=== PATIENT | female | born 1960 | race Caucasian/White ===

== ENCOUNTER → 2016-10-06 | Outpatient (CLI) | payer OTHER | LOC: FIMAGING 10:42 | PROVIDERS: ATTEND Family Medicine | DX: Z12.31 Encounter for screening mammogram for malignant neoplasm of breast (principal) | CPT/HCPCS: G0202 ==

== ENCOUNTER 2016-12-17 10:43 | Emergency (ER) | payer OTHER ==
[2016-12-17 10:57] VITALS: BP 150/95; PULSE 68; RESP 20; TEMP 98.2; O2SAT 100
--- NOTE | 2016-12-17 11:04 | EDPHY ---
H & P Stated Complaint: pt noted lump in r groin wednesday/sent by pcp to r/o DVT Time Seen by Provider: 12/17/16 11:04 - Personal History LMP (Females 10-55): Post Menopausal Current Tetanus/Diphtheria Vaccine: Unsure - Medical/Surgical History Hx Asthma: No Hx Chronic Respiratory Disease: No Hx Diabetes: No Hx Cardiac Disease: No Hx Renal Disease: No Hx Cirrhosis: No Hx Alcoholism: No Hx HIV/AIDS: No Hx Splenectomy or Spleen Trauma: No Other PMH: appy sciatica/uterine fibroids/eye surgery - Social History Smoking Status: Never smoked Constitutional: Initial Vital Signs Temperature (C) 36.8 C 12/17/16 10:50 Heart Rate 68 12/17/16 10:50 Respiratory Rate 20 12/17/16 10:50 Blood Pressure 150/95 H 12/17/16 10:50 O2 Sat (%) 100 12/17/16 10:50 O2 Delivery Mode Room Air Allergies/Adverse Reactions: No Known Allergies Allergy (Unverified 12/17/16 10:49) Home Medications: Medication Instructions Recorded Estrogen,Con/M-Progest Acet 12/17/16 Hydrocodone/APAP 5/325 [[place] 1 - 2 each PO Q4-6PRN PRN #11 tab 12/17/16 5/325] Progesterone 12/17/16 Valacyclovir HCl [Valtrex] 1,000 mg PO TID #21 tab 12/17/16 Medical Decision Making - Diagnostics Imaging Results: Imaging Impressions Extremity Venous Study 12/17/16 11:08 Impression: No evidence of deep vein thrombosis in the right leg. I discussed results by telephone with Hardik, public relations assistant for Dr. Azar, at 1230 hours. ED Course/Re-evaluation: CHIEF COMPLAINT: Right calf swelling and pain. HISTORY OF PRESENT ILLNESS: The patient is a 56-year-old female who presents with calf pain that began early Wednesday. On Wednesday she developed associated swelling and pain in her right groin. Her calf pain has begun to resolve. She did recently have an 18 hour train trip. She denies fever, recent sickness, cough, vomiting, or other complaints. REVIEW OF SYSTEMS: A 10 point review of systems was performed and is negative with the exception of the elements mentioned in the history of present illness. PHYSICAL EXAM: HR, BP, O2 Sat, RR. Temp noted General Appearance: Alert, well hydrated, appropriate, and non-toxic appearing. Head: Atraumatic without scalp tenderness or obvious injury Eyes: Pupils equal, round, reactive to light and accommodation, EOMI, no trauma , no injection. Ears: Clear bilaterally, no perforation, normal landmarks Nose: Atraumatic, no rhinorrhea, clear. Throat: There is no erythema or exudates, no lesions, normal tonsils, mucus membranes moist. Neck: Supple, 2+ carotid upstroke, nontender, no lymphadenopathy. Respiratory: No retractions, no distress, no wheezes, and no accessory muscle use. Lungs are clear to auscultation bilaterally. Cardiovascular: Regular rate and rhythm, no murmurs, rubs, or gallops. Bilateral carotid, radial, dorsalis pedis, and posterior tibial pulses intact. Good capillary refill all extremities. Gastrointestinal: Abdomen is soft, non-distended, no masses, no rebound, no guarding, no peritoneal signs. Right inguinal tenderness with swollen lymph node. Musculoskeletal: Normal active ROM of all extremities, atraumatic. Neurological: Alert, appropriate, and interactive. The patient has normal DTRs and non-focal cranial nerves, motor, sensory, and cerebellar exam. Skin: Good turgor, no nodules on palpation. Small areas of excoriation over erythematous area to lower right back. Past medical history: Uterine fibroids. Past surgical history: Eye surgery. Family history: N/A. Social history: . DIFFERENTIAL DIAGNOSIS: The differential diagnosis for the patient's leg swelling included but was not limited to hypoalbuminemia, congestive heart failure, cor pulmonale, venous stasis, trauma, and DVT. MEDICAL DECISION MAKIN-year-old female presents from her PCP with right calf pain, right inguinal swelling, and lower right back lesions that began 3 days ago. On exam she has a small area of lesions to her lower right back and a swollen right groin lymph node. She does have a history of herpes infections. I feel this most likely represents a herpes infection. We will check a right leg ultrasound. 1230: Ultrasound results conveyed to me negative by Dr. Cuadra, radiology. I discussed this with the patient at this time and answered her questions. I will place her on Valacyclovir. She is comfortable with the plan. Departure - Departure Disposition: Home, Routine, Self-Care Clinical Impression: HSV (herpes simplex virus) infection Condition: Good Instructions: Shingles (ED) Additional Instructions: Take Valacyclovir as prescribed. Take [place] Luz as prescribed when needed for pain control. Follow up with your primary care provider next week for reevaluation of any ongoing symptoms. Return for any serious worsening of condition. Referrals: Gillian Lux MD [Primary Care Provider] - As per Instructions Prescriptions: Hydrocodone/APAP 5/325 [[place] 5/325] 1 - 2 each PO Q4-6PRN PRN #11 tab PRN Reason: Pain, Moderate Valacyclovir HCl [Valtrex] 1,000 mg PO TID #21 tab Report Scribed for: Neville Azar Report Scribed by: Denys Grace Date of Report: 12/17/16 Time of Report: 12:30
== END 2016-12-17 13:38 | disposition home or self-care (01) ==
DX: B00.9 Herpesviral infection, unspecified (principal)

== ENCOUNTER → 2017-02-01 | Outpatient (CLI) | payer OTHER | LOC: FIMAGING 10:23 | PROVIDERS: ATTEND Nurse Practitioner Women's Health | DX: Z13.820 Encounter for screening for osteoporosis (principal); M85.80 Other specified disorders of bone density and structure, unspecified site; Z78.0 Asymptomatic menopausal state; Z79.890 Hormone replacement therapy ==